=== PATIENT | female | born 1960 | race Caucasian/White ===

== ENCOUNTER 2016-08-10 12:58 | Emergency (ER) | payer OTHER ==
[~2016-08-10] VITALS: Ht 175.3 cm; Wt 63.5 kg
[2016-08-10 13:00] VITALS: BP 109/60; PULSE 85; RESP 19; TEMP 97.6; O2SAT 99
--- NOTE | 2016-08-10 13:00 | NUR ---
Patient triaged and placed in waiting room. VSS and patient appears in no acute distress at this time. Accompanied by SELF, awaiting available bed, and MD notified of need for MSE.
--- NOTE | 2016-08-10 13:05 | NUR ---
Dr Bush at bedside examing patient
--- NOTE | 2016-08-10 13:10 | NUR ---
Pt brought by self,A&OX4, Pt c/o persistent cough,yellow sputum ,fever and congestion , skin pink and warm, cap refill <3, VS WNL.
[2016-08-10 13:58] LABS: BASOPHILS % (AUTO) 0.4 % (0.0-2.0); EOSINOPHILS # (AUTO) 0.1 K/uL (0.0-0.4); EOSINOPHILS % (AUTO) 1.2 % (0.0-4.0); HEMOGLOBIN 12.9 g/dL (12.0-16.0); LYMPHOCYTES # (AUTO) 1.3 K/uL (1.0-5.5); LYMPHOCYTES % (AUTO) 12.4 % (20.5-51.5); MEAN CORPUSCULAR HEMOGLOBIN 29 pg (27-31); MEAN CORPUSCULAR HGB CONC 33 % (32-36); MEAN CORPUSCULAR VOLUME 88 fL (79.0-98.0); MONOCYTES # (AUTO) 0.7 K/uL (0.0-1.0); MONOCYTES % (AUTO) 6.5 % (1.7-9.3); NEUTROPHILS # (AUTO) 8.2 K/uL (1.8-7.7); NEUTROPHILS % (AUTO) 79.5 % (40.0-70.0); PLATELET COUNT (AUTO) 134 K/uL (130-430); RED BLOOD CELL COUNT(AUTO) 4.43 MIL/uL (4.2-6.2); RED CELL DISTRIBUTION WIDTH 13.5 % (9.0-15.0); WHITE BLOOD COUNT (AUTO) 10.3 K/uL (4.8-10.8)
[2016-08-10] MEDS ORDERED: IPRATROPIUM/ALBUTEROL SULFATE 3 ML AMPUL.NEB INH ONE (14:00)
[2016-08-10 14:21] LABS: CALCIUM 9.4 mg/dL (8.4-11.0); CREATININE 0.91 mg/dL (0.55-1.30); POTASSIUM 4.1 mmol/L (3.5-5.1)
[2016-08-10 14:26] LABS: ALBUMIN 3.7 g/dL (3.4-4.8); TOTAL BILIRUBIN 0.4 mg/dL (0.0-1.0); TOTAL PROTEIN, SERUM 8.2 g/dL (6.4-8.3)
--- NOTE | 2016-08-10 15:45 | NUR ---
Patient given written and verbal discharge instructions and verbalizes understanding. ER MD discussed with patient the results and treatment provided. Given copies of tests performed in ER. Patient in stable condition. ID arm band removed. Rx of Promethazine with codeine given. Patient educated on pain management and to follow up with PMD. Pain Scale 0/10 Opportunity for questions provided and answered.
[2016-08-10 15:47] VITALS: BP 102/64; PULSE 85; RESP 19; TEMP 97.6; O2SAT 100
== END 2016-08-10 15:36 | disposition home or self-care (01) ==
LOC: SED 12:58
DX: J20.9 Acute bronchitis, unspecified (principal)
CPT/HCPCS: 36415; 71020-TC; 80053; 83605; 85025; 87040-TC; 94640; 99285

== ENCOUNTER 2021-02-22 10:00 | Outpatient (CLI) | payer OTHER, SELFPAY ==
[~2021-02-22] VITALS: Ht 172.7 cm; Wt 64.9 kg
== END 2021-02-22 11:00 | disposition home or self-care (01) ==
LOC: SLB 10:00 → EDSTATUS 02-23 08:00
PROVIDERS: ATTEND Internal Medicine Gastroenterology
DX: Z01.812 Encounter for preprocedural laboratory examination (principal); Z20.822 Contact with and (suspected) exposure to COVID-19; R19.5 Other fecal abnormalities; R10.13 Epigastric pain
CPT/HCPCS: 36415

== ENCOUNTER 2021-04-18 07:49 | Day surgery (SDC) | payer OTHER ==
[~2021-04-18] VITALS: Ht 170.2 cm; Wt 65.8 kg
[2021-04-18] MEDS ORDERED: SIMETHICONE 40 MG/0.6 ML ML ONE (08:52)
[2021-04-18] MEDS ORDERED: fentaNYL CITRATE/PF 100 MCG/2 ML AMP ONE (08:52)
[2021-04-18] MEDS ORDERED: MIDAZOLAM HCL 5 MG/5 ML VIAL ONE (08:53)
[2021-04-18 13:35] VITALS: BP_SYST 97
== END 2021-04-18 11:40 | disposition home or self-care (01) ==
LOC: SDS 07:49 → SMU 10:42 → SDS 11:40
PROVIDERS: ATTEND Internal Medicine
DX: R19.5 Other fecal abnormalities (principal); K29.50 Unspecified chronic gastritis without bleeding; D12.4 Benign neoplasm of descending colon; R10.13 Epigastric pain; K64.8 Other hemorrhoids; Z79.899 Other long term (current) drug therapy
CPT/HCPCS: 36415; 43239; 45385; 87081; 88305; 88312; 88313; 99152; 99153; G0378; J2250; J3010

== ENCOUNTER 2024-04-30 05:50 | Day surgery (SDC) | payer OTHER ==
[~2024-04-30] VITALS: Ht 170.2 cm; Wt 65.8 kg
[2024-04-30] MEDS ORDERED: DEXAMETHASONE SOD PHOSPHATE 4 MG/ML VIAL ONE (07:30)
[2024-04-30] MEDS ORDERED: PROPOFOL 200MG/ 20ML VIAL (DIPRIVAN) IV ONE (07:30)
[2024-04-30] MEDS ORDERED: SEVOFLURANE 15 MIN GAS INH ONE (07:30)
[2024-04-30] MEDS ORDERED: LR 1,000 ML IV.SOLN IV ONE (07:30)
[2024-04-30] MEDS ORDERED: METOCLOPRAMIDE HCL 10 MG/2 ML VIAL ONE (07:30)
[2024-04-30] MEDS ORDERED: GLYCOPYRROLATE 0.2 MG/ML VIAL ONE (07:30)
[2024-04-30] MEDS ORDERED: fentaNYL CITRATE/PF 100 MCG/2 ML AMP ONE ×2 (07:30→07:39)
[2024-04-30] MEDS ORDERED: SUCCINYLCHOLINE CHLORIDE 20 MG/ML(QUELICIN) ONE (07:30)
[2024-04-30 07:54] VITALS: O2SAT 97
[2024-04-30] MEDS ORDERED: ONDANSETRON HCL 4 MG/2 ML VIAL IVP PRN (08:45)
[2024-04-30] MEDS ORDERED: ACETAMINOPHEN I.V. 1000 MG 100 ML IV ONE (08:45)
[2024-04-30] MEDS ORDERED: METOCLOPRAMIDE HCL 10 MG/2 ML VIAL IVP PRN (08:45)
[2024-04-30] MEDS ORDERED: HYDROmorphone 1 MG/ML INJ. CARTRIDGE IVP PRN (08:45)
[2024-04-30] MEDS ORDERED: MORPHINE 4 MG INJ. 4 MG/ML VIAL IVP PRN ×2 (08:45)
[2024-04-30 12:01] VITALS: BP_SYST 117; PULSE 77; RESP 20
== END 2024-04-30 11:20 | disposition home or self-care (01) ==
LOC: SMU 05:50 → SDS 05:50
PROVIDERS: ATTEND Student in an Organized Health Care Education/Training Program
DX: N30.21 Other chronic cystitis with hematuria (principal); E03.9 Hypothyroidism, unspecified; M19.90 Unspecified osteoarthritis, unspecified site; Z79.890 Hormone replacement therapy; Z79.899 Other long term (current) drug therapy
CPT/HCPCS: 88108; 88305; J0330; J1100; J2704; J2765; J3010; J3490; J7120